=== PATIENT | male | born 1965 | race American Indian/Alaskan Native ===

== ENCOUNTER 2016-12-12 09:11 | Observation (INO) | payer MEDICAID ==
[2016-12-12] MEDS ORDERED: Sodium Chloride 0.9% 500 ML IV ONE ×2 (09:35→09:56)
[2016-12-12 09:38] VITALS: O2SAT 100
--- NOTE | 2016-12-12 09:41 | C.PDOC ---
History Of Present Illness SP SYNCOPAL EPISODE [employer]. ONSET WHILE STANDING AT WORK. PS DID NOT EAT USUAL BREAKFAST THIS MORNING, HAD ONLY COFFEE. HEAVY LIFTING AT WORK, "WAS VERY HOT ON THE FLOOR". BECAME LIGHTHEADED. NO TRAUMA. CURRENTLY CO SINGH. NO OTHER ASSOC SX. COMPLIANT W HTN MEDS EXCEPT FOR THIS MORNING. EXAM NEG Time Seen by Provider: 12/12/16 09:36 Chief Complaint (Nursing): Syncope History Per: Patient History/Exam Limitations: no limitations Onset/Duration Of Symptoms: Hrs Fall Associated With With Symptoms: No Injury As Result Of Fall Recent travel outside of the [place]: No Past Medical History Reviewed: Historical Data, Nursing Documentation, Vital Signs Vital Signs: Last Vital Signs Temp 98.1 F 12/12/16 11:10 Pulse 76 12/12/16 11:10 Resp 18 12/12/16 11:10 BP 114/75 12/12/16 11:10 Pulse Ox 100 12/12/16 13:11 - Medical History PMH: HTN Family History: States: Unknown Family Hx - Social History Hx Alcohol Use: Yes Hx Substance Use: Yes - Immunization History Hx Tetanus Toxoid Vaccination: No Hx Influenza Vaccination: No Review Of Systems Constitutional: Negative for: Fever, Chills Cardiovascular: Negative for: Chest Pain Respiratory: Negative for: Cough, Shortness of Breath, Wheezing Gastrointestinal: Negative for: Nausea, Vomiting Musculoskeletal: Negative for: Neck Pain Skin: Negative for: Rash Neurological: Positive for: Headache, Other (SYNCOPAL EPISODE ) Physical Exam - Physical Exam Appears: Non-toxic, No Acute Distress Skin: Warm, Dry Head: Atraumatic, Normacephalic Eye(s): bilateral: Normal Inspection, PERRL, EOMI Ear(s): Bilateral: Normal Nose: Normal Oral Mucosa: Moist Neck: No Paracervical Tenderness, Supple Chest: Symmetrical Cardiovascular: Rhythm Regular Respiratory: Normal Breath Sounds, No Rales, No Rhonchi, No Wheezing Gastrointestinal/Abdominal: Soft, No Tenderness, No Guarding, No Rebound Back: Normal Inspection Extremity: Normal ROM, Capillary Refill (< 2 SEC. ) Neurological/Psych: Oriented x3, Normal Speech, Normal Cognition ED Course And Treatment - Laboratory Results Result Diagrams: 12/12/16 10:08 12/12/16 10:08 ECG: Interpreted By Me ECG Rhythm: Sinus Bradycardia ECG Interpretation: Normal Rate From EC O2 Sat by Pulse Oximetry: 100 (RA) Pulse Ox Interpretation: Normal - Radiology CXR: Interpreted by Me CXR Interpretation: Yes: No Acute Disease Progress - Data Reviewed Data Reviewed: Lab, Diagnostic imaging, EKG, Old records - Critical Care Citical Care: Excluding Proc Time Critical Care Time: 120 minutes ED OBSERVATION Discharge: Yes Date of observation admission: 12/12/16 Time of observation admission: 09:45 - Observation admission statement Patient is being placed in observation because:: SYNCOPE, HYPOGLYCEMIA - Goals of Observation Goals of observation are:: SX IMPROVE - Progress Note Progress Note: 12/12/16 09:49 PER RN PERSIST HYPOGLYCEMIA S/P ORANGE JUICE. VSS. WILL GIVE D50, CONT PO INTAKE 12/12/16 13:11 REPEAT FS 60. PS FEELS BETTER BUT STILL W RESIDUAL SINGH. CT HEAD NEG. REASSESS AFTER REGULAR DIET 12/12/16 14:20 sp diet fs wnl. PT [id number]. Disposition Counseled Patient/Family Regarding: Studies Performed, Diagnosis, Need For Followup - Disposition Disposition: HOME/ ROUTINE Disposition Time: 14:20 Condition: IMPROVED - Clinical Impression Clinical Impression: Syncope, Hypoglycemia - Scribe Statement The provider has reviewed the documentation as recorded by the Sueztteibelle DOMINGUEZ All medical record entries made by the Suzetteibelle were at my direction and personally dictated by me. I have reviewed the chart and agree that the record accurately reflects my personal performance of the history, physical exam, medical decision making, and the department course for this patient. I have also personally directed, reviewed, and agree with the discharge instructions and disposition.
[2016-12-12] MEDS ORDERED: Dextrose 50% SYRINGE Inj (50 ml) ONE (09:48)
[2016-12-12] MEDS ORDERED: Dextrose 50% SYRINGE Inj (50 ml) IVP STA (09:56)
[2016-12-12 10:14] LABS: BASO % 0.2 % (0.0-2.0); EOS % 0.1 % (0.0-4.0); HEMOGLOBIN 12.7 g/dL (12.0-18.0); LYMPH # 0.9 K/uL (1.0-4.3); LYMPH % 5.4 % (20.0-40.0); MEAN CELL VOLUME 90.6 fL (80.0-94.0); MEAN PLATELET VOLUME 8.4 fL (7.2-11.7); MONO # 0.5 K/uL (0.0-0.8); MONO % 3.1 % (0.0-10.0); NEUT # 14.8 K/uL (1.8-7.0); NEUT % 91.2 % (50.0-75.0); PLATELET COUNT 261 K/uL (130-400); RBC 4.39 Mil/uL (4.40-5.90); RED CELL DISTRIBUTION WIDTH 14.8 % (11.5-14.5); WHITE BLOOD COUNT 16.3 K/uL (4.8-10.8)
[2016-12-12 10:28] LABS: ALBUMIN 4.3 g/dL (3.5-5.0)
[2016-12-12 10:30] LABS: GFR AFRICAN-AMERICAN > 60; GFR NON-AFRICAN AMERICAN > 60
[2016-12-12 10:31] LABS: ALB/GLOB RATIO 1.3 (1.0-2.1); ALT/SGPT 39 U/L (21-72); AST/SGOT 48 U/L (17-59); BLOOD UREA NITROGEN 25 mg/dL (9-20); CALCIUM 8.9 mg/dl (8.6-10.4)
[2016-12-12 10:43] LABS: BANDS 1 % (0-2); LYMPHOCYTE 6 % (20-40); MONOCYTE 1 % (0-10); NEUTROPHIL 92 % (50-75); PLATELET ESTIMATE NORMAL (NORMAL); TOTAL CELLS COUNTED 100
--- NOTE | 2016-12-12 12:03 | CT ---
PROCEDURE: CT HEAD WITHOUT CONTRAST. HISTORY: SYNCOPE, HEADACHE COMPARISON: None available. TECHNIQUE: Axial computed tomography images were obtained through the head/brain without intravenous contrast. Radiation dose: Total exam DLP = 758.20 mGy-cm. This CT exam was performed using one or more of the following dose reduction techniques: Automated exposure control, adjustment of the mA and/or kV according to patient size, and/or use of iterative reconstruction technique. FINDINGS: HEMORRHAGE: No intracranial hemorrhage. BRAIN: No mass effect or edema. No atrophy or chronic microvascular ischemic changes. VENTRICLES: Unremarkable. No hydrocephalus. CALVARIUM: Unremarkable. PARANASAL SINUSES: Unremarkable as visualized. No significant inflammatory changes. MASTOID AIR CELLS: Unremarkable as visualized. No inflammatory changes. OTHER FINDINGS: None. IMPRESSION: Normal CT of the Head. No intracranial mass, hemorrhage or evidence acute infarct.
[2016-12-12 12:04] VITALS: RESP 18
--- NOTE | 2016-12-12 12:35 | RAD ---
HISTORY: SYNCOPE COMPARISON: None TECHNIQUE: Chest PA and lateral FINDINGS: LUNGS: No active pulmonary disease. PLEURA: No significant pleural effusion identified. No pneumothorax apparent. CARDIOVASCULAR: Normal. OSSEOUS STRUCTURES: No significant abnormalities. VISUALIZED UPPER ABDOMEN: Normal. OTHER FINDINGS: None. IMPRESSION: No active cardiopulmonary disease identified.
[2016-12-12 12:58] LABS: SQUAMOUS EPITHIAL < 1 /hpf (0-5); URINE BILIRUBIN NEGATIVE (NEGATIVE); URINE BLOOD NEGATIVE (NEGATIVE); URINE CLARITY Clear (Clear); URINE COLOR Yellow (YELLOW); URINE GLUCOSE (UA) 3+ mg/dL (Normal); URINE LEUKOCYTE ESTERASE NEG Leu/uL (Negative); URINE NITRATE NEGATIVE (NEGATIVE); URINE PROTEIN NEGATIVE (NEGATIVE); URINE UROBILINOGEN NORMAL mg/dL (0.2-1.0)
[2016-12-12 14:53] VITALS: BP 121/71; PULSE 62; TEMP 98.6
--- NOTE | 2016-12-15 12:48 | CARD ---
APPROVED REPORT EKG Measurement Heart [id number] <Conclusion> Sinus bradycardia with sinus arrhythmia Rightward axis Voltage criteria for left ventricular hypertrophy Abnormal ECG
== END 2016-12-12 14:26 | disposition home or self-care (01) ==
LOC: C.ER 09:11 → C.9E 09:30 → C.9OBSV 10:48
PROVIDERS: ADMIT Emergency Medicine; ATTEND Emergency Medicine
DX: R55 Syncope and collapse (principal); E16.2 Hypoglycemia, unspecified; I10 Essential (primary) hypertension
CPT/HCPCS: 70450; 71020; 80053; 81001; 82948; 84484; 85025; 96374; 99285; G0378; J7040